=== PATIENT | male | born 1955 ===

== ENCOUNTER 2020-04-17 18:40 | Inpatient (IN) ==
[2020-04-17] MEDS ORDERED: LIDOCAINE 1% 20 ML VIAL ONE ×2 (19:14→20:31)
[2020-04-17] MEDS ORDERED: HEPARIN/NACL 0.9% 2 UNITS/ML 1,500 ML IV ONE (19:14)
[2020-04-17] MEDS ORDERED: NOREPINEPHRINE 4 MG/4 ML VIAL IV ONE (19:55)
[2020-04-17] MEDS ORDERED: NOREPINEPHRINE 8 MG in SODIUM CHLORIDE 0.9% 242 ML IV PRN (19:58)
[2020-04-17] MEDS ORDERED: ONDANSETRON 4 MG/2 ML VIAL ONE (20:06)
[2020-04-17] MEDS ORDERED: SODIUM CHLORIDE 0.9% 1,000 ML IV ONE (20:14)
[2020-04-17] MEDS ORDERED: ONDANSETRON 4 MG/2 ML VIAL IV PRN (20:21)
[2020-04-17 20:29] LABS: Basophils # 0.1 10*3/uL (0.0-0.2); Basophils % 0.2 % (0.0-0.8); Eosinophils # 0.1 10*3/uL (0.0-0.87); Eosinophils % 0.3 % (0.00-10.9); Hematocrit 37.7 VOL% (42.0-52.0); Hemoglobin 11.7 GM/DL (14.0-18.0); Immature Granulocytes % 2.3 %; Immature Granulocytes Absolute 0.64 #; Lymphocytes # 0.8 10*3/uL (1.4-4.0); Lymphocytes % 2.9 % (21.2-54.2); Mean Corpuscular Volume 99.2 FL (87-102); Mean Platelet Volume 11.4 FL (9.6-12.0); Monocytes % 3.9 % (1.7-12.7); Neutrophils % 90.4 % (38.7-73.9); Platelet Count 209 T/CUMM (130-400); Red Cell Distribution Width 13.9 % (9.3-17.3); White Blood Count 27.9 T/CUMM (4-12)
[2020-04-17] MEDS ORDERED: HEPARIN/NACL 0.9% 2 UNITS/ML 1,000 ML IV ONE (20:31)
[2020-04-17] MEDS ORDERED: VERAPAMIL 5 MG/2 ML VIAL ONE (20:34)
[2020-04-17] MEDS ORDERED: NITROGLYCERIN DRIP 50 MG/250 ML BOTTLE IV ONE (20:34)
[2020-04-17 20:42] LABS: INR 1.2; PT Patient Result 12.6 SECS (9.8-11.9); Partial Thromboplastin Time 43.3 SECS (23.9-33.8)
[2020-04-17 20:46] LABS: Blood Urea Nitrogen 21 MG/DL (7-18); Calcium 7.7 MG/DL (8.5-10.1); Carbon Dioxide 21 MMOL/L (21-32); Estimated Glom Filtration Rate 60 ML/MIN; Glucose 231 MG/DL (74-106); Osmolality,Calculated 286.5 MOS/KG (273-304); Potassium 3.5 MMOL/L (3.5-5.1); Sodium 139 MMOL/L (136-145)
[2020-04-17 20:49] LABS: Band Neutrophils 2 % (0-10); Lymphocytes 2 % (20-55); Platelet Estimate Adequate; Segmented Neutrophils 91 % (50-85); Total Cells Counted 100
[2020-04-17] MEDS ORDERED: HEPARIN 5,000 UNIT/1 ML VIAL ONE (21:04)
[2020-04-17] MEDS ORDERED: PROMETHAZINE 25 MG/1 ML VIAL ONE (22:03)
[2020-04-18 01:37] LABS: Basophils % 0.1 % (0.0-0.8); Hematocrit 35.8 VOL% (42.0-52.0); Hemoglobin 11.2 GM/DL (14.0-18.0); Immature Granulocytes % 0.7 %; Immature Granulocytes Absolute 0.13 #; Lymphocytes # 0.7 10*3/uL (1.4-4.0); Lymphocytes % 3.6 % (21.2-54.2); Mean Corpuscular HGB Conc 31.3 GM/DL (32-36); Mean Corpuscular Volume 96.2 FL (87-102); Mean Platelet Volume 11.6 FL (9.6-12.0); Monocytes % 3.7 % (1.7-12.7); Neutrophils % 91.9 % (38.7-73.9); Platelet Count 223 T/CUMM (130-400); Red Blood Count 3.72 MC/CUMM (3.8-5.5); White Blood Count 18.8 T/CUMM (4-12)
[2020-04-18 01:49] LABS: Calcium 7.6 MG/DL (8.5-10.1); Osmolality,Calculated 283.4 MOS/KG (273-304); Potassium 4.2 MMOL/L (3.5-5.1); Risk Ratio 1.95; VLDL CHOLESTEROL 8.8 MG/DL
[2020-04-18 02:07] LABS: Band Neutrophils 2 % (0-10); Lymphocytes 2 % (20-55); Segmented Neutrophils 92 % (50-85); Total Cells Counted 100
[2020-04-18 02:08] LABS: Hypochromasia 1+; Ovalocytes 1+; Platelet Estimate Normal
[2020-04-18] MEDS: TICAGRELOR 90 MG TABLET PO SCH ×2 (09:52→20:27)
[2020-04-18] MEDS: ASPIRIN EC 81 MG TABLET PO SCH (09:52)
[2020-04-18] MEDS: ATORVASTATIN 40 MG TABLET PO SCH (09:52)
[2020-04-18] MEDS: lisinopriL 2.5 MG TABLET PO SCH (12:27)
[2020-04-18] MEDS: PANTOPRAZOLE 40 MG TABLET PO SCH (17:24)
[2020-04-18 20:33] LABS: CKMB % 6.5 %
[2020-04-18 20:39] LABS: Troponin I 52.9 NG/ML (0.00-0.045)
[2020-04-18 22:27] LABS: Barbiturates Screen,Urine Negative (Negative); Benzodiazepines Screen,Urine Negative (Negative); Cannabinoid Screen,Urine Negative (Negative); Opiate Screen,Urine Positive (Negative); Phencyclidine Screen,Urine Negative (Negative)
[2020-04-19 03:25] LABS: Basophils # 0.1 10*3/uL (0.0-0.2); Basophils % 0.4 % (0.0-0.8); Eosinophils # 0.3 10*3/uL (0.0-0.87); Hematocrit 35.6 VOL% (42.0-52.0); Hemoglobin 11.3 GM/DL (14.0-18.0); Immature Granulocytes % 0.6 %; Immature Granulocytes Absolute 0.08 #; Lymphocytes # 1.9 10*3/uL (1.4-4.0); Lymphocytes % 15.3 % (21.2-54.2); Mean Corpuscular HGB Conc 31.7 GM/DL (32-36); Mean Corpuscular Volume 95.4 FL (87-102); Mean Platelet Volume 11.9 FL (9.6-12.0); Monocytes % 7.2 % (1.7-12.7); Neutrophils % 74.5 % (38.7-73.9); Platelet Count 171 T/CUMM (130-400); Red Blood Count 3.73 MC/CUMM (3.8-5.5); Red Cell Distribution Width 14.6 % (9.3-17.3); White Blood Count 12.7 T/CUMM (4-12)
[2020-04-19 03:42] LABS: Calcium 8.1 MG/DL (8.5-10.1); Osmolality,Calculated 277.5 MOS/KG (273-304); Potassium 3.7 MMOL/L (3.5-5.1)
[2020-04-19] MEDS: ASPIRIN EC 81 MG TABLET PO SCH (08:08)
[2020-04-19] MEDS: lisinopriL 2.5 MG TABLET PO SCH (08:08)
[2020-04-19] MEDS: TICAGRELOR 90 MG TABLET PO SCH ×2 (08:08→21:22)
[2020-04-19] MEDS: ATORVASTATIN 40 MG TABLET PO SCH (08:09)
[2020-04-19] MEDS: PANTOPRAZOLE 40 MG TABLET PO SCH (08:09)
[2020-04-20 06:06] LABS: Basophils # 0.1 10*3/uL (0.0-0.2); Basophils % 0.4 % (0.0-0.8); Eosinophils # 0.3 10*3/uL (0.0-0.87); Eosinophils % 2.6 % (0.00-10.9); Hematocrit 39.1 VOL% (42.0-52.0); Hemoglobin 12.6 GM/DL (14.0-18.0); Immature Granulocytes % 0.5 %; Immature Granulocytes Absolute 0.06 #; Lymphocytes # 1.3 10*3/uL (1.4-4.0); Lymphocytes % 10.6 % (21.2-54.2); Mean Corpuscular HGB Conc 32.2 GM/DL (32-36); Mean Corpuscular Volume 95.6 FL (87-102); Mean Platelet Volume 11.9 FL (9.6-12.0); Monocytes % 7.5 % (1.7-12.7); Neutrophils % 78.4 % (38.7-73.9); Platelet Count 168 T/CUMM (130-400); Red Blood Count 4.09 MC/CUMM (3.8-5.5); Red Cell Distribution Width 14.1 % (9.3-17.3); White Blood Count 12.1 T/CUMM (4-12)
[2020-04-20 06:25] LABS: Calcium 8.5 MG/DL (8.5-10.1); Osmolality,Calculated 277.4 MOS/KG (273-304); Potassium 3.4 MMOL/L (3.5-5.1)
[2020-04-20] MEDS: lisinopriL 2.5 MG TABLET PO SCH (09:07)
[2020-04-20] MEDS: ASPIRIN EC 81 MG TABLET PO SCH (09:07)
[2020-04-20] MEDS: METOPROLOL SUCCINATE XL 25 MG TABLET PO SCH (09:07)
[2020-04-20] MEDS: TICAGRELOR 90 MG TABLET PO SCH ×2 (09:07→20:40)
[2020-04-20] MEDS: PANTOPRAZOLE 40 MG TABLET PO SCH (09:07)
[2020-04-20] MEDS: ATORVASTATIN 40 MG TABLET PO SCH (09:07)
[2020-04-21 06:25] LABS: Basophils # 0.1 10*3/uL (0.0-0.2); Basophils % 0.5 % (0.0-0.8); Eosinophils # 0.6 10*3/uL (0.0-0.87); Eosinophils % 5.8 % (0.00-10.9); Hematocrit 39.5 VOL% (42.0-52.0); Hemoglobin 12.7 GM/DL (14.0-18.0); Immature Granulocytes % 0.5 %; Immature Granulocytes Absolute 0.05 #; Lymphocytes # 1.6 10*3/uL (1.4-4.0); Lymphocytes % 14.5 % (21.2-54.2); Mean Corpuscular HGB Conc 32.2 GM/DL (32-36); Mean Corpuscular Volume 94.3 FL (87-102); Mean Platelet Volume 11.8 FL (9.6-12.0); Monocytes % 8.1 % (1.7-12.7); Neutrophils % 70.6 % (38.7-73.9); Platelet Count 173 T/CUMM (130-400); Red Blood Count 4.19 MC/CUMM (3.8-5.5); Red Cell Distribution Width 14.1 % (9.3-17.3); White Blood Count 10.8 T/CUMM (4-12)
[2020-04-21 06:53] LABS: Calcium 8.5 MG/DL (8.5-10.1); Osmolality,Calculated 280.3 MOS/KG (273-304); Potassium 3.6 MMOL/L (3.5-5.1)
[2020-04-21] MEDS: ASPIRIN EC 81 MG TABLET PO SCH (09:46)
[2020-04-21] MEDS: METOPROLOL SUCCINATE XL 25 MG TABLET PO SCH (09:46)
[2020-04-21] MEDS: lisinopriL 2.5 MG TABLET PO SCH (09:46)
[2020-04-21] MEDS: ATORVASTATIN 40 MG TABLET PO SCH (09:46)
[2020-04-21] MEDS: TICAGRELOR 90 MG TABLET PO SCH (09:47)
[2020-04-21] MEDS: PANTOPRAZOLE 40 MG TABLET PO SCH (09:47)
[2020-04-21 13:35] VITALS: BP 112/76
== END 2020-04-21 18:10 | disposition home or self-care (01) | DRG 174 ==
LOC: N.CL 18:40 → N.ICU 18:43 → N.CL 18:43 → N.ICU 19:56 → N.TELES 04-19 09:59
PROVIDERS: ADMIT Internal Medicine Cardiovascular Disease; ATTEND Internal Medicine Cardiovascular Disease
PROC: CLCCHCL (ICD-10-PCS; 2020-04-17 19:00)

== ENCOUNTER 2020-04-29 12:37 | Inpatient (IN) ==
[2020-05-06] MEDS ORDERED: GLUCAGON 1 MG VIAL IM PRN (08:54)
[2020-05-06] MEDS ORDERED: DEXTROSE 50% 25 GM/50 ML VIAL IV PRN (08:54)
[2020-05-06] MEDS ORDERED: CLORAZEPATE 3.75 MG TABLET PO PRN (08:57)
[2020-05-06] MEDS ORDERED: NITROGLYCERIN SL 0.4 MG TABLET SL PRN (08:58)
[2020-05-06] MEDS ORDERED: MORPHINE 4 MG/1 ML VIAL IV PRN (08:59)
[2020-05-06] MEDS ORDERED: SODIUM CHLORIDE 0.9% 1,000 ML IV SCH (09:00)
[2020-05-06 09:38] LABS: Basophils # 0.1 10*3/uL (0.0-0.2); Basophils % 0.7 % (0.0-0.8); Eosinophils # 0.6 10*3/uL (0.0-0.87); Hematocrit 40.4 VOL% (42.0-52.0); Hemoglobin 12.9 GM/DL (14.0-18.0); Immature Granulocytes % 0.3 %; Immature Granulocytes Absolute 0.03 #; Lymphocytes # 1.3 10*3/uL (1.4-4.0); Lymphocytes % 12.8 % (21.2-54.2); Mean Corpuscular HGB Conc 31.9 GM/DL (32-36); Mean Corpuscular Volume 95.5 FL (87-102); Mean Platelet Volume 11.5 FL (9.6-12.0); Monocytes % 7.3 % (1.7-12.7); Neutrophils % 72.9 % (38.7-73.9); Platelet Count 264 T/CUMM (130-400); Red Blood Count 4.23 MC/CUMM (3.8-5.5); Red Cell Distribution Width 13.9 % (9.3-17.3)
[2020-05-06 10:01] LABS: Albumin 3.4 G/DL (3.4-5.0); Bilirubin,Total 0.4 MG/DL (0.2-1.0); Calcium 9.1 MG/DL (8.5-10.1); Osmolality,Calculated 271.1 MOS/KG (273-304); Potassium 4.4 MMOL/L (3.5-5.1); Total Protein 8.1 G/DL (5.0-7.5)
[2020-05-06 10:14] LABS: Troponin I < 0.015 NG/ML (0.00-0.045)
[2020-05-06] MEDS ORDERED: PANTOPRAZOLE 40 MG TABLET PO ONE (11:08)
[2020-05-06] MEDS ORDERED: DIAZEPAM 5 MG TABLET PO ONE (11:08)
[2020-05-06] MEDS: CHLORHEXIDINE 4% SOLN 118 ML BOTTLE TOP SCH ×3 (11:52→21:54)
[2020-05-06] MEDS: CHLORHEXIDINE 0.12% ORAL RINSE 60 ML BOTTLE SWISH/SPIT SCH ×2 (11:52→21:54)
[2020-05-06 12:06] LABS: ABG Base Excess 0.4 MMOL/L (-2.5-2.5); ABG HCO3 24.2 MMOL/L (20-26); ABG Oxygen Saturation 97.5 % (95-100); ABG PCO2 36.4 MM HG (35-48); ABG PH 7.441 (7.35-7.45); ABG TCO2 25.3 MMOL/L (23-27)
[2020-05-07] MEDS ORDERED: PAPAVERINE 60 MG/2 ML VIAL ONE (04:22)
[2020-05-07] MEDS ORDERED: VANCOMYCIN 1,000 MG VIAL ONE (04:22)
[2020-05-07] MEDS ORDERED: VANCOMYCIN 500 MG VIAL ONE (04:23)
[2020-05-07] MEDS ORDERED: CEFUROXIME INJ 1,500 MG in SODIUM CHLORIDE 0.9% 100 ML IV ONE (05:00)
[2020-05-07] MEDS ORDERED: PHENYLEPHRINE DRIP 20 MG/250 ML PREMIX IV ONE (05:35)
[2020-05-07] MEDS ORDERED: LIDOCAINE 2% 5 ML VIAL ONE ×2 (05:52→10:20)
[2020-05-07] MEDS ORDERED: VECURONIUM 10 MG VIAL IV ONE (05:52)
[2020-05-07] MEDS ORDERED: MIDAZOLAM 10 MG/2 ML VIAL ONE ×4 (05:52→10:18)
[2020-05-07] MEDS ORDERED: CALCIUM CHLORIDE 1,000 MG/10 ML VIAL IV ONE (05:52)
[2020-05-07] MEDS ORDERED: AMINOCAPROIC ACID 5,000 MG/20 ML VIAL ONE (05:52)
[2020-05-07] MEDS ORDERED: SUFentanil 250 MCG/5 ML AMP ONE ×2 (05:52→06:02)
[2020-05-07] MEDS ORDERED: ETOMIDATE 40 MG/20 ML VIAL IV ONE (05:52)
[2020-05-07] MEDS ORDERED: NITROGLYCERIN DRIP 50 MG/250 ML BOTTLE IV ONE (06:05)
[2020-05-07] MEDS ORDERED: DIAZEPAM 5 MG TABLET PO ONE (06:30)
[2020-05-07] MEDS ORDERED: PANTOPRAZOLE 40 MG TABLET PO ONE (06:30)
[2020-05-07] MEDS ORDERED: ePHEDrine 50 MG/ML VIAL ONE (07:10)
[2020-05-07 07:51] LABS: ABG Base Excess 0.1 MMOL/L (-2.5-2.5); ABG HCO3 24.5 MMOL/L (20-26); ABG PCO2 40.6 MM HG (35-48); ABG PH 7.396 (7.35-7.45); ABG TCO2 22.4 MMOL/L (23-27); Glucose Heart Surgery 103 MG/DL (74-106); Hematocrit Heart Surgery 33.1 PERCENT (42-52); Hemoglobin Heart Surgery 10.7 G/DL (14.0-18.0); Ionized Calcium Arterial 1.12 MMOL/L (1.21-1.46); PCO2 Patient Temp Arterial 40.6 MMHG; PH Patient Temp Arterial 7.396; Patient Temperature 37 CELCIUS; Potassium Heart/CVR 3.7 MMOL/L (3.5-5.1); Sodium Heart/CVR 141 MMOL/L (135-145)
[2020-05-07 08:23] LABS: Bilirubin,Urine Negative (Negative); Blood, Urine Moderate mg/dL (Negative); Glucose,Urine (UA) Negative (Negative); Ketones,Urine Negative (Negative); Mucus,Urine Occasional /LPF (Occasional); Nitrite,Urine Negative (Negative); Protein,Urine Negative; RBC,Urine 9 /HPF (0-4); Squamous Epithelial Cell,Urine Occasional /HPF (0-10); Urine Appearance CLEAR (Clear); Urine Color Yellow (Yellow); Urine Specific Gravity 1.016 (1.001-1.035); Urine Urobilinogen < 2.0 EU/DL (0.2-1.0); WBC,Urine 1 /HPF (0-6)
[2020-05-07] MEDS ORDERED: PHENYLEPHRINE DRIP 40 MG/250 ML PREMIX IV ONE (08:27)
[2020-05-07] MEDS ORDERED: HEPARIN/NACL 0.9% 2 UNITS/ML 500 ML IV ONE (09:20)
[2020-05-07 09:21] LABS: Hemoglobin Heart Surgery 7.8 G/DL (14.0-18.0); PCO2 Patient Temp Venous 34.9 MM HG; PH Patient Temp Venous 7.467; PO2 Patient Temp Venous 37.3 MM HG; Potassium Heart/CVR 4.2 MMOL/L (3.5-5.1); VBG Base Excess 0.9 MEQ/L (0-4); VBG HCO3 25.4 MEQ/L (24-28); VBG Oxygen Saturation 81.9 %; VBG PCO2 39.8 MMHG (41-51); VBG PH 7.422; VBG PO2 46.1 MMHG (17-40); VBG Total CO2 26.6 MMOL/L
[2020-05-07 09:55] LABS: Hematocrit Heart Surgery 23.8 PERCENT (42-52); Hemoglobin Heart Surgery 7.6 G/DL (14.0-18.0); PCO2 Patient Temp Venous 34.9 MM HG; PH Patient Temp Venous 7.451; PO2 Patient Temp Venous 35.2 MM HG; Potassium Heart/CVR 4.8 MMOL/L (3.5-5.1); VBG Base Excess 0.7 MEQ/L (0-4); VBG HCO3 24.8 MEQ/L (24-28); VBG Oxygen Saturation 75.1 %; VBG PCO2 38.5 MMHG (41-51); VBG PH 7.422; VBG PO2 40.5 MMHG (17-40); VBG Total CO2 23.6 MMOL/L
[2020-05-07] MEDS ORDERED: MAGNESIUM SULFATE 5 GM/10 ML VIAL IV ONE (10:20)
[2020-05-07] MEDS ORDERED: ALBUMIN 25% 25 GM/100 ML VIAL IV ONE (10:20)
[2020-05-07] MEDS ORDERED: MANNITOL 100 GM/500 ML BAG IV ONE (10:21)
[2020-05-07] MEDS ORDERED: PROTAMINE SULFATE 250 MG/25 ML VIAL IV ONE (10:21)
[2020-05-07] MEDS ORDERED: FUROSEMIDE 20 MG/2 ML VIAL ONE (10:21)
[2020-05-07] MEDS ORDERED: methylPREDNISolone SOD SUC 1,000 MG/8 ML VIAL ONE (10:21)
[2020-05-07] MEDS ORDERED: DEXTROSE 5% KCL 20 MEQ 20 MEQ/1,000 ML BAG IV ONE (10:21)
[2020-05-07] MEDS ORDERED: HEPARIN 10,000 UNIT/10 ML VIAL ONE (10:21)
[2020-05-07] MEDS ORDERED: SODIUM BICARBONATE 50 MEQ/50 ML VIAL IV ONE (10:22)
[2020-05-07 10:26] LABS: ABG Base Excess -1.5 MMOL/L (-2.5-2.5); ABG HCO3 23.2 MMOL/L (20-26); ABG TCO2 21.9 MMOL/L (23-27); Glucose Heart Surgery 236 MG/DL (74-106); Hemoglobin Heart Surgery 8.7 G/DL (14.0-18.0); Ionized Calcium Arterial 1.25 MMOL/L (1.21-1.46); Patient Temperature 37 CELCIUS; Sodium Heart/CVR 132 MMOL/L (135-145)
[2020-05-07] MEDS ORDERED: SEVOFLURANE 1 UNIT/15 MINUTE INH ONE (11:30)
[2020-05-07] MEDS: LACTATED RINGERS 1,000 ML IV PRN ×5 (11:30→18:46)
[2020-05-07] MEDS ORDERED: SODIUM CHLORIDE 0.9% 250 ML IV ONE (11:31)
[2020-05-07] MEDS ORDERED: SODIUM CHLORIDE 0.9% 300 ML IV ONE (11:31)
[2020-05-07] MEDS ORDERED: SODIUM CHLORIDE 0.9% 1,000 ML IV ONE (11:31)
[2020-05-07] MEDS ORDERED: LACTATED RINGERS 1,000 ML IV ONE (11:31)
[2020-05-07] MEDS ORDERED: INSULIN REGULAR 100 UNIT/ML IV ONE (11:32)
[2020-05-07] MEDS ORDERED: ACETAMINOPHEN 650 MG SUPP RECTAL PRN (11:32)
[2020-05-07] MEDS ORDERED: ONDANSETRON 4 MG/2 ML VIAL IV PRN (11:32)
[2020-05-07] MEDS ORDERED: MIDAZOLAM 10 MG/2 ML VIAL IV PRN (11:32)
[2020-05-07] MEDS ORDERED: POTASSIUM CHLORIDE RIDER 10 MEQ in PREMIX 1 EACH IV PRN (11:32)
[2020-05-07] MEDS ORDERED: SODIUM CHLORIDE 0.45% 1,000 ML IV SCH ×2 (11:32)
[2020-05-07] MEDS ORDERED: MAGNESIUM SULF RIDER 2 GM in PREMIX 1 EACH IV PRN (11:32)
[2020-05-07] MEDS ORDERED: CHLORHEXIDINE 4% SOLN 118 ML BOTTLE TOP PRN (11:32)
[2020-05-07] MEDS ORDERED: PHENYLEPHRINE DRIP 40 MG/250 ML PREMIX IV PRN (11:32)
[2020-05-07] MEDS ORDERED: VECURONIUM 10 MG VIAL IV PRN ×2 (11:32)
[2020-05-07] MEDS ORDERED: CALCIUM CHLORIDE 1,000 MG/10 ML SYRINGE IV PRN (11:32)
[2020-05-07] MEDS ORDERED: INSULIN REGULAR 100 UNIT/ML IV PRN (11:32)
[2020-05-07] MEDS ORDERED: MORPHINE 10 MG/1 ML VIAL IV PRN (11:32)
[2020-05-07] MEDS ORDERED: LACTATED RINGERS 250 ML IV PRN (11:32)
[2020-05-07] MEDS ORDERED: NITROPRUSSIDE 100 MG in DEXTROSE 5% 250 ML IV PRN (11:32)
[2020-05-07] MEDS ORDERED: MIDAZOLAM 2 MG/2 ML VIAL IV PRN (11:32)
[2020-05-07] MEDS ORDERED: DEXTROSE 50% 25 GM/50 ML VIAL IV PRN ×2 (11:32)
[2020-05-07] MEDS ORDERED: MAGNESIUM SULF RIDER 4 GM in PREMIX 1 EACH IV PRN (11:32)
[2020-05-07] MEDS ORDERED: INSULIN REGULAR DRIP 100 ML IV SCH (11:32)
[2020-05-07 11:53] LABS: ABG Base Excess -1.1 MMOL/L (-2.5-2.5); ABG HCO3 23.5 MMOL/L (20-26); ABG Oxygen Saturation 99.7 % (95-100); ABG PCO2 43.5 MM HG (35-48); ABG PH 7.357 (7.35-7.45); ABG TCO2 22.4 MMOL/L (23-27); Glucose Heart Surgery 190 MG/DL (74-106); Hematocrit Heart Surgery 29.8 PERCENT (42-52); Hemoglobin Heart Surgery 9.6 G/DL (14.0-18.0); Potassium Heart/CVR 3.5 MMOL/L (3.5-5.1)
[2020-05-07 11:55] LABS: Basophils % 0.3 % (0.0-0.8); Eosinophils # 0.2 10*3/uL (0.0-0.87); Eosinophils % 1.1 % (0.00-10.9); Hematocrit 28.3 VOL% (42.0-52.0); Hemoglobin 9.4 GM/DL (14.0-18.0); Immature Granulocytes % 1.1 %; Immature Granulocytes Absolute 0.15 #; Lymphocytes # 0.7 10*3/uL (1.4-4.0); Lymphocytes % 4.7 % (21.2-54.2); Mean Corpuscular HGB Conc 33.2 GM/DL (32-36); Mean Corpuscular Volume 94.3 FL (87-102); Mean Platelet Volume 11.5 FL (9.6-12.0); Monocytes % 4.5 % (1.7-12.7); Neutrophils % 88.3 % (38.7-73.9); Platelet Count 171 T/CUMM (130-400); Red Cell Distribution Width 14.1 % (9.3-17.3); White Blood Count 14.2 T/CUMM (4-12)
[2020-05-07 12:07] LABS: INR 1.1; PT Patient Result 12.1 SECS (9.8-11.9)
[2020-05-07 12:15] LABS: CKMB % 7.5 %
[2020-05-07 12:16] LABS: Troponin I 3.99 NG/ML (0.00-0.045)
[2020-05-07] MEDS: POTASSIUM CHLORIDE RIDER 20 MEQ in PREMIX 1 EACH IV PRN ×2 (12:19→14:46)
[2020-05-07 12:23] LABS: Lymphocytes 8 % (20-55); Segmented Neutrophils 90 % (50-85); Total Cells Counted 100
[2020-05-07 12:27] LABS: Platelet Estimate Normal
[2020-05-07 12:34] LABS: Albumin 2.3 G/DL (3.4-5.0); Bilirubin,Total 0.5 MG/DL (0.2-1.0); Calcium 6.9 MG/DL (8.5-10.1); Osmolality,Calculated 297.3 MOS/KG (273-304); Potassium 3.1 MMOL/L (3.5-5.1); Total Protein 4.9 G/DL (5.0-7.5)
[2020-05-07 13:43] LABS: ABG Base Excess 0.4 MMOL/L (-2.5-2.5); ABG HCO3 24.8 MMOL/L (20-26); ABG Oxygen Saturation 99.5 % (95-100); ABG PH 7.377 (7.35-7.45); ABG TCO2 23.2 MMOL/L (23-27); Glucose Heart Surgery 185 MG/DL (74-106); Hematocrit Heart Surgery 34.4 PERCENT (42-52); Hemoglobin Heart Surgery 11.2 G/DL (14.0-18.0); Potassium Heart/CVR 4.1 MMOL/L (3.5-5.1)
[2020-05-07] MEDS: ALBUMIN 5% 12.5 GM in PREMIX 1 EACH IV PRN ×3 (13:58→14:52)
[2020-05-07 14:40] LABS: ABG Base Excess 0.3 MMOL/L (-2.5-2.5); ABG HCO3 24.7 MMOL/L (20-26); ABG Oxygen Saturation 98.6 % (95-100); ABG PCO2 45.3 MM HG (35-48); ABG PH 7.365 (7.35-7.45); ABG TCO2 23.7 MMOL/L (23-27); Glucose Heart Surgery 183 MG/DL (74-106); Hematocrit Heart Surgery 30.4 PERCENT (42-52); Hemoglobin Heart Surgery 9.8 G/DL (14.0-18.0); Potassium Heart/CVR 3.8 MMOL/L (3.5-5.1)
[2020-05-07] MEDS ORDERED: DOBUTamine 500 MG/250 ML PREMIX IV ONE (15:29)
[2020-05-07] MEDS ORDERED: DOBUTamine 500 MG/250 ML PREMIX IV SCH (15:30)
[2020-05-07] MEDS: methylPREDNISolone SOD SUC 125 MG/2 ML VIAL IV SCH ×2 (16:32→22:28)
[2020-05-07 16:40] LABS: ABG Base Excess -1.5 MMOL/L (-2.5-2.5); ABG HCO3 23.2 MMOL/L (20-26); ABG Oxygen Saturation 98.8 % (95-100); ABG PCO2 48.5 MM HG (35-48); ABG PH 7.319 (7.35-7.45); ABG TCO2 22.9 MMOL/L (23-27); Glucose Heart Surgery 172 MG/DL (74-106); Hematocrit Heart Surgery 31.2 PERCENT (42-52); Hemoglobin Heart Surgery 10.1 G/DL (14.0-18.0); Potassium Heart/CVR 4.1 MMOL/L (3.5-5.1)
[2020-05-07 17:58] LABS: ABG Base Excess -1.5 MMOL/L (-2.5-2.5); ABG HCO3 23.2 MMOL/L (20-26); ABG Oxygen Saturation 98.8 % (95-100); ABG PCO2 48.1 MM HG (35-48); ABG PH 7.323 (7.35-7.45); ABG TCO2 22.7 MMOL/L (23-27)
[2020-05-07] MEDS: MORPHINE 4 MG/1 ML VIAL IV PRN ×2 (18:28→22:01)
[2020-05-07] MEDS: CEFUROXIME INJ 1,500 MG in SYRINGE 1 EACH IV SCH (18:40)
[2020-05-07 19:03] LABS: ABG Base Excess -0.3 MMOL/L (-2.5-2.5); ABG HCO3 24.2 MMOL/L (20-26); ABG Oxygen Saturation 99.5 % (95-100); ABG PCO2 31.1 MM HG (35-48); ABG TCO2 20.5 MMOL/L (23-27); Glucose Heart Surgery 211 MG/DL (74-106); Hematocrit Heart Surgery 31.5 PERCENT (42-52); Hemoglobin Heart Surgery 10.2 G/DL (14.0-18.0); Potassium Heart/CVR 4.1 MMOL/L (3.5-5.1)
[2020-05-07 20:07] LABS: CKMB % 5.1 %
[2020-05-07 20:16] LABS: ABG Base Excess -0.3 MMOL/L (-2.5-2.5); ABG HCO3 24.2 MMOL/L (20-26); ABG Oxygen Saturation 99.5 % (95-100); ABG PCO2 34.7 MM HG (35-48); ABG PH 7.436 (7.35-7.45); ABG TCO2 20.7 MMOL/L (23-27); Glucose Heart Surgery 212 MG/DL (74-106); Hematocrit Heart Surgery 36.5 PERCENT (42-52); Hemoglobin Heart Surgery 11.8 G/DL (14.0-18.0)
[2020-05-07 20:21] LABS: Troponin I 4.36 NG/ML (0.00-0.045)
[2020-05-07] MEDS: CHLORHEXIDINE 0.12% ORAL RINSE 60 ML BOTTLE SWISH/SPIT SCH (21:18)
[2020-05-07 22:03] LABS: ABG Base Excess -0.7 MMOL/L (-2.5-2.5); ABG HCO3 23.8 MMOL/L (20-26); ABG Oxygen Saturation 99.6 % (95-100); ABG PCO2 34.2 MM HG (35-48); ABG PH 7.436 (7.35-7.45); ABG TCO2 20.9 MMOL/L (23-27); Glucose Heart Surgery 165 MG/DL (74-106); Hematocrit Heart Surgery 30.2 PERCENT (42-52); Hemoglobin Heart Surgery 9.8 G/DL (14.0-18.0); Potassium Heart/CVR 4.1 MMOL/L (3.5-5.1)
[2020-05-07 23:04] LABS: ABG Base Excess -0.5 MMOL/L (-2.5-2.5); ABG Oxygen Saturation 99.3 % (95-100); ABG PCO2 39.2 MM HG (35-48); ABG PH 7.399 (7.35-7.45); Glucose Heart Surgery 160 MG/DL (74-106); Hematocrit Heart Surgery 30.3 PERCENT (42-52); Hemoglobin Heart Surgery 9.8 G/DL (14.0-18.0); Potassium Heart/CVR 4.1 MMOL/L (3.5-5.1)
[2020-05-07 23:58] LABS: ABG Base Excess 0.1 MMOL/L (-2.5-2.5); ABG HCO3 24.5 MMOL/L (20-26); ABG Oxygen Saturation 99.2 % (95-100); ABG PCO2 40.8 MM HG (35-48); ABG PH 7.394 (7.35-7.45); ABG TCO2 22.7 MMOL/L (23-27); Glucose Heart Surgery 163 MG/DL (74-106); Hematocrit Heart Surgery 30.9 PERCENT (42-52); Potassium Heart/CVR 4.2 MMOL/L (3.5-5.1)
[2020-05-08] MEDS ORDERED: FUROSEMIDE 40 MG/4 ML VIAL IV ONE (00:24)
[2020-05-08] MEDS: ALBUMIN 5% 12.5 GM in PREMIX 1 EACH IV PRN (00:26)
[2020-05-08] MEDS: MORPHINE 4 MG/1 ML VIAL IV PRN ×3 (01:09→09:20)
[2020-05-08 04:02] LABS: ABG Base Excess 3.1 MMOL/L (-2.5-2.5); ABG HCO3 27.2 MMOL/L (20-26); ABG Oxygen Saturation 98.9 % (95-100); ABG PCO2 43.1 MM HG (35-48); ABG PH 7.419 (7.35-7.45); ABG TCO2 25.4 MMOL/L (23-27); Glucose Heart Surgery 133 MG/DL (74-106); Hematocrit Heart Surgery 30.6 PERCENT (42-52); Hemoglobin Heart Surgery 9.9 G/DL (14.0-18.0); Potassium Heart/CVR 4.1 MMOL/L (3.5-5.1)
[2020-05-08 04:07] LABS: Basophils % 0.1 % (0.0-0.8); Hematocrit 29.5 VOL% (42.0-52.0); Hemoglobin 9.7 GM/DL (14.0-18.0); Immature Granulocytes % 0.7 %; Immature Granulocytes Absolute 0.11 #; Lymphocytes # 0.5 10*3/uL (1.4-4.0); Lymphocytes % 3.3 % (21.2-54.2); Mean Corpuscular HGB Conc 32.9 GM/DL (32-36); Mean Corpuscular Volume 93.4 FL (87-102); Mean Platelet Volume 11.7 FL (9.6-12.0); Monocytes % 3.6 % (1.7-12.7); Neutrophils % 92.3 % (38.7-73.9); Platelet Count 155 T/CUMM (130-400); Red Blood Count 3.16 MC/CUMM (3.8-5.5); Red Cell Distribution Width 14.6 % (9.3-17.3); White Blood Count 16.3 T/CUMM (4-12)
[2020-05-08 04:25] LABS: Hypochromasia 1+; Lymphocytes 4 % (20-55); Microcytosis 1+; Platelet Estimate Adequate; Segmented Neutrophils 94 % (50-85); Total Cells Counted 100
[2020-05-08 04:31] LABS: Albumin 3.5 G/DL (3.4-5.0); Bilirubin,Direct 0.16 MG/DL (0.0-0.20); Bilirubin,Total 0.4 MG/DL (0.2-1.0); Calcium 8.2 MG/DL (8.5-10.1); Osmolality,Calculated 278.7 MOS/KG (273-304); Potassium 4.1 MMOL/L (3.5-5.1); Total Protein 6.5 G/DL (5.0-7.5)
[2020-05-08 04:33] LABS: CKMB % 2.4 %
[2020-05-08 04:46] LABS: Troponin I 3.07 NG/ML (0.00-0.045)
[2020-05-08] MEDS: methylPREDNISolone SOD SUC 125 MG/2 ML VIAL IV SCH ×2 (04:49→11:33)
[2020-05-08] MEDS: CEFUROXIME INJ 1,500 MG in SYRINGE 1 EACH IV SCH ×2 (05:55→18:15)
[2020-05-08] MEDS ORDERED: ASPIRIN EC 325 MG TABLET PO SCH (09:00)
[2020-05-08] MEDS: INSULIN REGULAR 100 UNIT/ML SUBCUT SCH ×4 (09:26→20:55)
[2020-05-08] MEDS: CHLORHEXIDINE 0.12% ORAL RINSE 60 ML BOTTLE SWISH/SPIT SCH ×2 (10:05→20:18)
[2020-05-08] MEDS ORDERED: MAGNESIUM SULF RIDER 4 GM in PREMIX 1 EACH IV PRN (11:25)
[2020-05-08] MEDS ORDERED: SODIUM CHLOR 0.45% KCL 20 MEQ 20 MEQ/1,000 ML BAG IV SCH (11:25)
[2020-05-08] MEDS ORDERED: ONDANSETRON 4 MG/2 ML VIAL IV PRN (11:25)
[2020-05-08] MEDS ORDERED: MAGNESIUM SULF RIDER 2 GM in PREMIX 1 EACH IV PRN (11:25)
[2020-05-08] MEDS ORDERED: DEXTROSE 50% 25 GM/50 ML VIAL IV PRN (11:25)
[2020-05-08] MEDS ORDERED: ZALEPLON 5 MG CAPSULE PO PRN (11:25)
[2020-05-08] MEDS ORDERED: ALUMINUM/MAGNES/SIMETH MAX STR 30 ML UDCUP PO PRN (11:25)
[2020-05-08] MEDS ORDERED: POTASSIUM CHLORIDE 20 MEQ TABLET PO PRN (11:25)
[2020-05-08] MEDS ORDERED: GLUCAGON 1 MG VIAL IM PRN (11:25)
[2020-05-08] MEDS ORDERED: ACETAMINOPHEN 325 MG TABLET PO PRN (11:25)
[2020-05-08] MEDS: methylPREDNISolone SOD SUC 40 MG/1 ML VIAL IV SCH ×3 (11:51→23:29)
[2020-05-08] MEDS: KETOROLAC 30 MG/1 ML VIAL IV PRN (11:52)
[2020-05-08 12:54] LABS: CKMB % 1.8 %; Troponin I 2.11 NG/ML (0.00-0.045)
[2020-05-08] MEDS: TICAGRELOR 90 MG TABLET PO SCH (20:18)
[2020-05-08] MEDS: ATORVASTATIN 40 MG TABLET PO SCH (20:18)
[2020-05-08] MEDS: oxyCODONE/ACETAMINOPHEN 5-325 MG TABLET PO PRN (23:51)
[2020-05-09] MEDS: KETOROLAC 30 MG/1 ML VIAL IV PRN (03:33)
[2020-05-09 05:30] LABS: Basophils % 0.1 % (0.0-0.8); Hematocrit 25.4 VOL% (42.0-52.0); Hemoglobin 8.1 GM/DL (14.0-18.0); Immature Granulocytes % 1.8 %; Lymphocytes # 0.4 10*3/uL (1.4-4.0); Mean Corpuscular HGB Conc 31.9 GM/DL (32-36); Mean Corpuscular Volume 96.2 FL (87-102); Mean Platelet Volume 12.9 FL (9.6-12.0); Monocytes % 3.4 % (1.7-12.7); Neutrophils % 92.7 % (38.7-73.9); Platelet Count 120 T/CUMM (130-400); Red Blood Count 2.64 MC/CUMM (3.8-5.5); Red Cell Distribution Width 14.9 % (9.3-17.3); White Blood Count 22.2 T/CUMM (4-12)
[2020-05-09 05:43] LABS: Alanine Aminotransferase 20 U/L (16-61); Albumin 2.9 G/DL (3.4-5.0); Alkaline Phosphatase 82 U/L (45-117); Aspartate Amino Transferase 34 U/L (0-37); Bilirubin,Total < 0.39 MG/DL (0.2-1.0); Blood Urea Nitrogen 33 MG/DL (7-18); Carbon Dioxide 28 MMOL/L (21-32); Estimated Glom Filtration Rate 63 ML/MIN; Glucose 145 MG/DL (74-106); Osmolality,Calculated 282.8 MOS/KG (273-304); Potassium 4.6 MMOL/L (3.5-5.1); Sodium 137 MMOL/L (136-145); Total Protein 5.9 G/DL (5.0-7.5)
[2020-05-09 05:45] LABS: Albumin 2.9 G/DL (3.4-5.0); Bilirubin,Direct 0.14 MG/DL (0.0-0.20); Bilirubin,Indirect 0.6 MG/DL (0.0-1.0); Bilirubin,Total 0.7 MG/DL (0.2-1.0)
[2020-05-09 05:46] LABS: Troponin I 1.24 NG/ML (0.00-0.045)
[2020-05-09] MEDS: methylPREDNISolone SOD SUC 40 MG/1 ML VIAL IV SCH (05:46)
[2020-05-09] MEDS ORDERED: FUROSEMIDE 40 MG/4 ML VIAL IV ONE (06:00)
[2020-05-09 07:17] LABS: Lymphocytes 2 % (20-55); Platelet Estimate Decreased; Segmented Neutrophils 95 % (50-85); Total Cells Counted 100
[2020-05-09] MEDS: INSULIN REGULAR 100 UNIT/ML SUBCUT SCH ×4 (09:30→20:49)
[2020-05-09] MEDS: DOCUSATE SODIUM 100 MG CAPSULE PO SCH (09:31)
[2020-05-09] MEDS: TICAGRELOR 90 MG TABLET PO SCH ×2 (09:31→20:49)
[2020-05-09] MEDS: PANTOPRAZOLE 40 MG TABLET PO SCH (09:31)
[2020-05-09] MEDS: ASPIRIN EC 81 MG TABLET PO SCH (09:31)
[2020-05-09] MEDS: FERROUS SULFATE 325 MG TABLET PO SCH (09:32)
[2020-05-09] MEDS: CHLORHEXIDINE 0.12% ORAL RINSE 60 ML BOTTLE SWISH/SPIT SCH ×2 (09:34→20:51)
[2020-05-09] MEDS: KETOROLAC 30 MG/1 ML VIAL IV SCH ×3 (11:10→23:58)
[2020-05-09] MEDS: ATORVASTATIN 40 MG TABLET PO SCH (20:48)
[2020-05-09] MEDS: predniSONE 10 MG TABLET PO SCH (20:48)
[2020-05-10 05:16] LABS: Basophils % 0.1 % (0.0-0.8); Hemoglobin 9.3 GM/DL (14.0-18.0); Immature Granulocytes % 1.1 %; Immature Granulocytes Absolute 0.22 #; Lymphocytes # 0.6 10*3/uL (1.4-4.0); Lymphocytes % 2.8 % (21.2-54.2); Mean Corpuscular HGB Conc 33.2 GM/DL (32-36); Mean Corpuscular Volume 93.3 FL (87-102); Mean Platelet Volume 13.2 FL (9.6-12.0); Monocytes % 5.3 % (1.7-12.7); Neutrophils % 90.7 % (38.7-73.9); Platelet Count 132 T/CUMM (130-400); Red Cell Distribution Width 14.6 % (9.3-17.3); White Blood Count 20.1 T/CUMM (4-12)
[2020-05-10 05:28] LABS: Calcium 8.5 MG/DL (8.5-10.1); Osmolality,Calculated 283.8 MOS/KG (273-304); Potassium 3.9 MMOL/L (3.5-5.1)
[2020-05-10 05:35] LABS: Albumin 3.1 G/DL (3.4-5.0); Bilirubin,Direct 0.15 MG/DL (0.0-0.20); Bilirubin,Total 0.8 MG/DL (0.2-1.0); Calcium 8.5 MG/DL (8.5-10.1); Osmolality,Calculated 284.8 MOS/KG (273-304); Total Protein 5.8 G/DL (5.0-7.5)
[2020-05-10 05:55] LABS: Alanine Aminotransferase 25 U/L (16-61); Alkaline Phosphatase 88 U/L (45-117); Aspartate Amino Transferase 33 U/L (0-37); Bilirubin,Direct < 0.100 MG/DL (0.0-0.20); Total Protein 6.1 G/DL (5.0-7.5)
[2020-05-10] MEDS: KETOROLAC 30 MG/1 ML VIAL IV SCH ×4 (05:55→23:17)
[2020-05-10 05:56] LABS: Bilirubin,Indirect 0.3 MG/DL (0.0-1.0); Troponin I 0.563 NG/ML (0.00-0.045)
[2020-05-10 05:59] LABS: Band Neutrophils 1 % (0-10); Lymphocytes 3 % (20-55); Platelet Estimate Adequate; Segmented Neutrophils 89 % (50-85); Total Cells Counted 100
[2020-05-10 06:00] LABS: Anisocytosis 1+; Macrocytosis Slight
[2020-05-10] MEDS: MAGNESIUM HYDROXIDE SUSP 30 ML UDCUP PO PRN ×2 (09:07→14:40)
[2020-05-10] MEDS: TICAGRELOR 90 MG TABLET PO SCH ×2 (09:08→23:16)
[2020-05-10] MEDS: PANTOPRAZOLE 40 MG TABLET PO SCH (09:08)
[2020-05-10] MEDS: ASPIRIN EC 81 MG TABLET PO SCH (09:08)
[2020-05-10] MEDS: predniSONE 10 MG TABLET PO SCH ×2 (09:08→23:17)
[2020-05-10] MEDS: FERROUS SULFATE 325 MG TABLET PO SCH (09:08)
[2020-05-10] MEDS: DOCUSATE SODIUM 100 MG CAPSULE PO SCH (09:08)
[2020-05-10] MEDS: CHLORHEXIDINE 0.12% ORAL RINSE 60 ML BOTTLE SWISH/SPIT SCH ×2 (09:11→23:16)
[2020-05-10] MEDS: INSULIN REGULAR 100 UNIT/ML SUBCUT SCH ×4 (10:01→23:16)
[2020-05-10] MEDS: oxyCODONE/ACETAMINOPHEN 5-325 MG TABLET PO PRN (14:41)
[2020-05-10] MEDS: ATORVASTATIN 40 MG TABLET PO SCH (23:16)
[2020-05-11] MEDS: KETOROLAC 30 MG/1 ML VIAL IV SCH ×4 (05:27→22:58)
[2020-05-11 06:06] LABS: Basophils % 0.1 % (0.0-0.8); Hematocrit 29.3 VOL% (42.0-52.0); Hemoglobin 9.3 GM/DL (14.0-18.0); Immature Granulocytes % 0.8 %; Immature Granulocytes Absolute 0.12 #; Lymphocytes # 0.8 10*3/uL (1.4-4.0); Lymphocytes % 5.6 % (21.2-54.2); Mean Corpuscular HGB Conc 31.7 GM/DL (32-36); Mean Platelet Volume 13.5 FL (9.6-12.0); Monocytes % 6.3 % (1.7-12.7); Neutrophils % 87.2 % (38.7-73.9); Platelet Count 150 T/CUMM (130-400); Red Blood Count 2.99 MC/CUMM (3.8-5.5); Red Cell Distribution Width 14.5 % (9.3-17.3); White Blood Count 14.5 T/CUMM (4-12)
[2020-05-11 06:21] LABS: Calcium 8.1 MG/DL (8.5-10.1); Osmolality,Calculated 287.4 MOS/KG (273-304); Potassium 4.4 MMOL/L (3.5-5.1)
[2020-05-11 09:02] LABS: Platelet Estimate Normal
[2020-05-11] MEDS: ASPIRIN EC 81 MG TABLET PO SCH (09:02)
[2020-05-11] MEDS: METOPROLOL SUCCINATE XL 25 MG TABLET PO SCH (09:02)
[2020-05-11] MEDS: TICAGRELOR 90 MG TABLET PO SCH ×2 (09:03→20:19)
[2020-05-11] MEDS: predniSONE 10 MG TABLET PO SCH ×2 (09:03→20:19)
[2020-05-11] MEDS: PANTOPRAZOLE 40 MG TABLET PO SCH (09:03)
[2020-05-11] MEDS: DOCUSATE SODIUM 100 MG CAPSULE PO SCH (09:03)
[2020-05-11] MEDS: CHLORHEXIDINE 0.12% ORAL RINSE 60 ML BOTTLE SWISH/SPIT SCH ×2 (09:03→20:20)
[2020-05-11] MEDS: FERROUS SULFATE 325 MG TABLET PO SCH (09:03)
[2020-05-11] MEDS: ASCORBIC ACID 500 MG TABLET PO SCH ×2 (09:03→20:18)
[2020-05-11] MEDS: ATORVASTATIN 40 MG TABLET PO SCH (20:19)
[2020-05-12] MEDS: KETOROLAC 30 MG/1 ML VIAL IV SCH ×2 (05:13→10:46)
[2020-05-12 05:17] LABS: Basophils % 0.1 % (0.0-0.8); Eosinophils # 0.1 10*3/uL (0.0-0.87); Eosinophils % 0.4 % (0.00-10.9); Hematocrit 29.4 VOL% (42.0-52.0); Hemoglobin 9.2 GM/DL (14.0-18.0); Immature Granulocytes % 0.9 %; Immature Granulocytes Absolute 0.11 #; Lymphocytes # 0.9 10*3/uL (1.4-4.0); Lymphocytes % 7.6 % (21.2-54.2); Mean Corpuscular HGB Conc 31.3 GM/DL (32-36); Mean Platelet Volume 12.7 FL (9.6-12.0); Platelet Count 170 T/CUMM (130-400); Red Blood Count 3.03 MC/CUMM (3.8-5.5); Red Cell Distribution Width 14.4 % (9.3-17.3); White Blood Count 11.8 T/CUMM (4-12)
[2020-05-12 05:50] LABS: Calcium 8.2 MG/DL (8.5-10.1); Osmolality,Calculated 282.5 MOS/KG (273-304); Potassium 4.1 MMOL/L (3.5-5.1)
[2020-05-12 06:02] LABS: Alanine Aminotransferase 31 U/L (16-61); Albumin 2.6 G/DL (3.4-5.0); Alkaline Phosphatase 93 U/L (45-117); Aspartate Amino Transferase 27 U/L (0-37); Bilirubin,Indirect 0.6 MG/DL (0.0-1.0); Blood Urea Nitrogen 28 MG/DL (7-18); Calcium 8.2 MG/DL (8.5-10.1); Carbon Dioxide 29 MMOL/L (21-32); Estimated Glom Filtration Rate 79 ML/MIN; Glucose 104 MG/DL (74-106); Osmolality,Calculated 282.5 MOS/KG (273-304); Potassium 4.1 MMOL/L (3.5-5.1); Sodium 139 MMOL/L (136-145); Total Protein 5.9 G/DL (5.0-7.5)
[2020-05-12 06:05] LABS: Troponin I 0.163 NG/ML (0.00-0.045)
[2020-05-12 07:44] VITALS: BP 123/81
[2020-05-12] MEDS: DOCUSATE SODIUM 100 MG CAPSULE PO SCH (08:49)
[2020-05-12] MEDS: ASCORBIC ACID 500 MG TABLET PO SCH (08:49)
[2020-05-12] MEDS: TICAGRELOR 90 MG TABLET PO SCH (08:49)
[2020-05-12] MEDS: ASPIRIN EC 81 MG TABLET PO SCH (08:49)
[2020-05-12] MEDS: PANTOPRAZOLE 40 MG TABLET PO SCH (08:49)
[2020-05-12] MEDS: predniSONE 10 MG TABLET PO SCH (08:49)
[2020-05-12] MEDS: FERROUS SULFATE 325 MG TABLET PO SCH (08:49)
[2020-05-12] MEDS: CHLORHEXIDINE 0.12% ORAL RINSE 60 ML BOTTLE SWISH/SPIT SCH (08:50)
[2020-05-12] MEDS: METOPROLOL SUCCINATE XL 25 MG TABLET PO SCH (08:50)
== END 2020-05-12 13:25 | disposition home health service (06) | DRG 235 ==
LOC: N.TELEN 05-06 08:42 → N.CVR 05-07 10:57 → N.ICU 05-08 11:22 → N.TELES 05-08 16:13